=== PATIENT | female | born 1965 | race Caucasian/White ===

== ENCOUNTER → 2016-11-23 | Outpatient (CLI) | payer BC ==
--- NOTE | 2016-11-23 10:48 | MM ---
Reason for exam: follow-up at short interval from prior study. Last mammogram was performed 10 months ago. History: Patient is postmenopausal. Benign left mammotome panel of the left breast, December 10, 2013. Took hormonal contraceptives for 20 years. Physical Findings: Nurse did not find any significant physical abnormalities on exam. MG Diagnostic Mammo RT w CAD CC and MLO view(s) were taken of the right breast. Prior study comparison: January 28, 2016, right breast MG work up mamm w CAD RT. January 08, 2016, bilateral MG screening mammo w CAD. The breast tissue is heterogeneously dense. This may lower the sensitivity of mammography. Asymmetric breast tissue in the right breast central position is stable. There is no discrete abnormality. These results were verbally communicated with the patient and result sheet given to the patient on 11/23/16. ASSESSMENT: Negative, BI-RAD 1 RECOMMENDATION: Return to routine screening mammogram schedule for both breasts. Back on schedule.
== END | disposition home or self-care (01) ==
LOC: RADMAMWWP 09:23
PROVIDERS: ATTEND Internal Medicine Geriatric Medicine
DX: R92.8 Other abnormal and inconclusive findings on diagnostic imaging of breast (principal)

== ENCOUNTER → 2018-04-13 | Outpatient (CLI) | payer BC ==
--- NOTE | 2018-04-17 10:11 | MM ---
Reason for exam: screening (asymptomatic). Last mammogram was performed 1 year and 5 months ago. History: Patient is postmenopausal. Benign left mammotome panel of the left breast, December 10, 2013. Took hormonal contraceptives for 20 years. Physical Findings: A clinical breast exam by your physician is recommended on an annual basis and results should be correlated with mammographic findings. MG 3D Screening Mammo W/Cad Bilateral CC and MLO view(s) were taken. Prior study comparison: November 23, 2016, right breast MG diagnostic mammo RT w CAD. January 28, 2016, right breast MG work up mamm w CAD RT. There are scattered fibroglandular densities. Previous mammotome biopsy in the left breast x 2. New 1.7cm circumscribed mass possible cyst central 2-3 o'clock position. Nodular asymmetry probably 3-4 o'clock appears larger but may represent vasculature. On 3D images, there is a 9mm nodular asymmetry posteriorly and laterally left breast, likely upper outer quadrant. ASSESSMENT: Incomplete: need additional imaging evaluation, BI-RAD 0 RECOMMENDATION: Special view mammogram and ultrasound of the left breast. [facility] will attempt to contact patient to return for supplemental views and ultrasound.
== END | disposition home or self-care (01) ==
LOC: RADMAMWWP 08:55
PROVIDERS: ATTEND Internal Medicine Geriatric Medicine
DX: Z12.31 Encounter for screening mammogram for malignant neoplasm of breast (principal)
CPT/HCPCS: 77063; 77067

== ENCOUNTER → 2018-04-28 | Outpatient (CLI) | payer BC ==
--- NOTE | 2018-05-01 09:03 | MM ---
Reason for exam: additional evaluation requested from abnormal screening. Last mammogram was performed less than 1 month ago. History: Patient is postmenopausal. Benign left mammotome panel of the left breast, December 10, 2013. Took hormonal contraceptives for 20 years. Physical Findings: Nurse Summary: 0.5cm nodule in the left breast at 1 o'clock (nurse dw). MG 3D Work Up W/Cad LT CC and MLO view(s) were taken of the left breast. Prior study comparison: April 13, 2018, bilateral MG 3d screening mammo w/cad. November 23, 2016, right breast MG diagnostic mammo RT w CAD. The breast tissue is heterogeneously dense. This may lower the sensitivity of mammography. There is a 1.7cm upper outer quadrant mass at middle posterior depth. 1.7cm from this there is a 5mm mass at posterior depth, additional masses appear as vascular ectasia on additional views. Left biopsy markers noted. These results were verbally communicated with the patient and result sheet given to the patient on 04/28/18. ASSESSMENT: Incomplete: need additional imaging evaluation, BI-RAD 0 RECOMMENDATION: Ultrasound of the left breast. (upper outer quadrant)
--- NOTE | 2018-05-01 09:05 | USB ---
Reason for exam: additional evaluation requested from abnormal screening. History: Patient is postmenopausal. Benign left mammotome panel of the left breast, December 10, 2013. Took hormonal contraceptives for 20 years. US Breast Workup Limited LT Left limited breast ultrasound including focal area of concern, retroareolar and axilla demonstrates a 1.5 x 0.9 x 1.6cm oval, cystic lesion at 1 o'clock and a 0.5 x 0.4 x 0.4cm oval, cystic lesion at 1 o'clock. These results were verbally communicated with the patient and result sheet given to the patient on 04/28/18. ASSESSMENT: Benign, BI-RAD 2 RECOMMENDATION: Return to routine screening mammogram schedule for both breasts.
== END | disposition home or self-care (01) ==
LOC: RADMAMWWP 14:27
PROVIDERS: ATTEND Internal Medicine Geriatric Medicine
DX: R92.8 Other abnormal and inconclusive findings on diagnostic imaging of breast (principal)
CPT/HCPCS: 77061; 77065

== ENCOUNTER → 2019-06-20 | Outpatient (CLI) | payer BC ==
--- NOTE | 2019-06-20 10:16 | BD ---
EXAMINATION TYPE: Axial Bone Density DATE OF EXAM: 06/20/2019 COMPARISON: NONE CLINICAL HISTORY: M 81.0 Height: 5 FT 3 1/4IN Weight: 125 FRAX RISK QUESTIONS: Secondary Osteoporosis: 3. Menopause before 45: YES RISK FACTORS HISTORY OF: Active: YES Postmenopausal woman: AGE 45 MEDICATIONS: Additional Medications: NONE Additional History: EXAM MEASUREMENTS: Bone mineral densitometry was performed using the [employer] System. Bone mineral density as measured about the Lumbar spine is: ----- L1-L4(G/cm2): 1.218 T Score Values are as follows: ----- L2: -0.4 ----- L3: 0.7 ----- L4: 0.4 ----- L1-L4: 0.3 BASELINE Bone mineral density about the R hip (g/cm2): 0.989 Bone mineral density about the L hip (g/cm2): 1.021 T Score values are as follows: -----R Neck: -0.4 -----L Neck: -0.1 -----R Total: 0.5 -----L Total: 0.8 BASELINE IMPRESSION: Normal (Values between +1 and -1 indicate normal bone mass). Consider repeating this study in 5 year s or sooner if there is some new clinical indication. NOTE: T-SCORE=SD OF THE YOUNG ADULT MEAN.
--- NOTE | 2019-06-21 14:18 | MM ---
Reason for exam: screening (asymptomatic). Last mammogram was performed 1 year and 2 months ago. History: Patient is postmenopausal. Benign left mammotome panel of the left breast, December 10, 2013. Took hormonal contraceptives for 20 years. Physical Findings: A clinical breast exam by your physician is recommended on an annual basis and results should be correlated with mammographic findings. MG 3D Screening Mammo W/Cad Bilateral CC and MLO view(s) were taken. Prior study comparison: April 28, 2018, left breast MG 3d work up w/cad LT. April 13, 2018, bilateral MG 3d screening mammo w/cad. The breast tissue is heterogeneously dense. This may lower the sensitivity of mammography. No suspicious abnormality. Right stable medial asymmetry. Left biopsy surgical clips noted with decrease in size of upper outer quadrant mass. No significant changes when compared with prior studies. ASSESSMENT: Benign, BI-RAD 2 RECOMMENDATION: Routine screening mammogram of both breasts in 1 year.
== END | disposition home or self-care (01) ==
LOC: RADMAMWWP 08:03
PROVIDERS: ATTEND Internal Medicine Geriatric Medicine
DX: Z12.31 Encounter for screening mammogram for malignant neoplasm of breast (principal); M81.0 Age-related osteoporosis without current pathological fracture
CPT/HCPCS: 77063; 77067; 77080

== ENCOUNTER → 2021-05-19 | Outpatient (CLI) | payer BC ==
--- NOTE | 2021-05-25 11:02 | MM ---
Reason for exam: screening (asymptomatic). Last mammogram was performed 1 year and 11 months ago. History: Patient is postmenopausal. Benign left mammotome panel of the left breast, December 10, 2013. Took hormonal contraceptives for 20 years. Physical Findings: A clinical breast exam by your physician is recommended on an annual basis and results should be correlated with mammographic findings. MG 3D Screening Mammo W/Cad Bilateral CC and MLO view(s) were taken. Prior study comparison: June 20, 2019, bilateral MG 3d screening mammo w/cad. April 28, 2018, left breast MG 3d work up w/cad LT. The breast tissue is heterogeneously dense. This may lower the sensitivity of mammography. Previous mammotome biopsy in the left breast x 2. 1.2 x 0.7cm circumscribed mass behind the right nipple, suspect a cyst, ultrasound recommended. 1 o'clock central left breast mass is larger and now lobulated at the site of previous cyst.. Repeat ultrasound recommended. A second area of nodularity posterior left breast just adjacent is more defined. ASSESSMENT: Incomplete: need additional imaging evaluation, BI-RAD 0 RECOMMENDATION: Special view mammogram of the left breast. (3D) Ultrasound of both breasts. (right periareolar, left 12-4 o'clock) [facility] will attempt to contact patient to return for supplemental views and ultrasound.
== END | disposition home or self-care (01) ==
LOC: RADMAMWWP 07:49
PROVIDERS: ATTEND Internal Medicine Geriatric Medicine
DX: Z12.31 Encounter for screening mammogram for malignant neoplasm of breast (principal)
CPT/HCPCS: 77063; 77067

== ENCOUNTER → 2021-06-10 | Outpatient (CLI) | payer BC ==
--- NOTE | 2021-06-10 10:02 | MM ---
Reason for exam: additional evaluation requested from abnormal screening. Last mammogram was performed 1 month ago. History: Patient is postmenopausal. Benign left mammotome panel of the left breast, December 10, 2013. Took hormonal contraceptives for 20 years. Physical Findings: Nurse did not find any significant physical abnormalities on exam. MG 3D Work Up W/Cad LT CCRM, CCRL, and LM view(s) were taken of the left breast. Prior study comparison: May 19, 2021, bilateral MG 3d screening mammo w/cad. June 20, 2019, bilateral MG 3d screening mammo w/cad. Persistent nodules left breast. Bilateral ultrasound recommended. These results were verbally communicated with the patient and result sheet given to the patient on 06/10/21. ASSESSMENT: Incomplete: need additional imaging evaluation, BI-RAD 0 RECOMMENDATION: Ultrasound of both breasts.
--- NOTE | 2021-06-10 10:05 | USB ---
Reason for exam: additional evaluation requested from abnormal screening. History: Patient is postmenopausal. Benign left mammotome panel of the left breast, December 10, 2013. Took hormonal contraceptives for 20 years. US Breast Workup Limited JEFFERY Right limited breast ultrasound including focal area of concern, retroareolar and axilla demonstrates a 1.1 x 0.6 x 1.1cm lobular, mixed lesion at subareaolar, 6 month follow up recommended. Left limited breast ultrasound including focal area of concern, retroareolar and axilla demonstrates a 0.8 x 0.6 x 0.7cm oval, cystic lesion at 2 o'clock. These results were verbally communicated with the patient and result sheet given to the patient on 06/10/21. ASSESSMENT: Probably benign, BI-RAD 3 Benign, BI-RAD 2 finding in the left breast. Probably benign, BI-RAD 3 finding in the right breast. RECOMMENDATION: Ultrasound of the right breast in 6 months.
== END | disposition home or self-care (01) ==
LOC: RADMAMWWP 07:06
PROVIDERS: ATTEND Internal Medicine Geriatric Medicine
DX: R92.8 Other abnormal and inconclusive findings on diagnostic imaging of breast (principal)
CPT/HCPCS: 77061; 77065

== ENCOUNTER → 2022-04-02 | Outpatient (CLI) | payer BC ==
--- NOTE | 2022-04-02 07:56 | USB ---
Reason for Exam: Follow-up at short interval from prior study. Patient History: Menarche at age 15. First Full-Term at age 29. Postmenopausal. Patient used Hormonal Contraceptives for 20 years. 12/10/2013, Benign Core Biopsy on the left side. Risk Values: Destiny 5 year model risk: 1.5%. NCI Lifetime model risk: 9.5%. Technique: Method: Targeted. Prior Study Comparison: 06/20/2019 Bilateral Screening Mammogram, [facility]. 05/19/2021 Bilateral Screening Mammogram, [facility]. 06/10/2021 Left Diagnostic Mammogram, [facility]. Findings: Finding 1: Complicated cysts. Laterality: Right. Size 12 x 6 x 13 mm. Depth: Anterior. Region: Retroareolar. . Overall Assessment: Probably benign, BI-RAD 3 Management: Diagnostic Breast Ultrasound of the right breast in 6 months. A clinical breast exam by your physician is recommended on an annual basis and results should be correlated with mammographic findings. Electronically signed and approved by: Bobo Resendiz M.D. Radiologis
== END | disposition home or self-care (01) ==
LOC: RADUSWWP 07:28
PROVIDERS: ATTEND Internal Medicine Geriatric Medicine
DX: N60.01 Solitary cyst of right breast (principal); Z78.0 Asymptomatic menopausal state

== ENCOUNTER → 2022-07-09 | Outpatient (CLI) | payer BC ==
--- NOTE | 2022-07-09 07:28 | MM ---
Reason for Exam: Additional evaluation requested from prior study. Last mammogram was performed 1 year(s) and 1 month(s) ago. Patient History: Menarche at age 15. First Full-Term at age 29. Postmenopausal. Patient used Hormonal Contraceptives for 20 years. 12/10/2013, Benign Core Biopsy on the left side. Risk Values: Destiny 5 year model risk: 1.5%. NCI Lifetime model risk: 9.5%. Prior Study Comparison: 06/20/2019 Bilateral Screening Mammogram, [facility]. 05/19/2021 Bilateral Screening Mammogram, [facility]. 06/10/2021 Left Diagnostic Mammogram, [facility]. Tissue Density: The breast tissue is heterogeneously dense. This may lower the sensitivity of mammography. Findings: Analyzed By CAD. Previous mammotome biopsy in the left breast x2. Stable 1.2 x 0.7 cm circumscribed mass behind the right nipple corresponding to complicated cyst on ultrasound. Stable 1:00 central left breast mass with lobulated appearance at the site of previous cyst. No new suspicious masses or worrisome cluster microcalcifications. No significant change in prior examination. Overall Assessment: Incomplete: need additional imaging evaluation, BI-RAD 0 Management: Diagnostic Breast Ultrasound of the right breast. A clinical breast exam by your physician is recommended on an annual basis and results should be correlated with mammographic findings. This exam should not preclude additional follow-up of suspicious palpable abnormalities. Results were given to the patient verbally at the time of exam. Electronically signed and approved by: Gregory Vogel D.O.
--- NOTE | 2022-07-09 07:53 | USB ---
Reason for Exam: Follow-up at short interval from prior study. Patient History: Menarche at age 15. First Full-Term at age 29. Postmenopausal. Patient used Hormonal Contraceptives for 20 years. 12/10/2013, Benign Core Biopsy on the left side. Risk Values: Destiny 5 year model risk: 1.5%. NCI Lifetime model risk: 9.5%. Technique: Method: Targeted. Prior Study Comparison: 06/20/2019 Bilateral Screening Mammogram, [facility]. 05/19/2021 Bilateral Screening Mammogram, [facility]. 06/10/2021 Left Diagnostic Mammogram, [facility]. Findings: The upper inner quadrant of the right breast, the axilla of the right breast and the retroareolar of the right breast were scanned. Limited ultrasound of the right breast in radial approach evaluating from 12:00 to 3:00 with additional evaluation of the retroareolar and axillary regions. Slightly decreased size of lobular, mixed lesion at the retroareolar region measuring 1.0 x 0.6 x 1.0 cm without internal vascular flow. Previously measured 1.1 x 0.6 x 1.1 cm. Overall Assessment: Benign, BI-RAD 2 Management: Screening Mammogram of both breasts in 1 year. A clinical breast exam by your physician is recommended on an annual basis and results should be correlated with mammographic findings. Electronically signed and approved by: Gregory Vogel D.O.
== END | disposition home or self-care (01) ==
LOC: RADMAMWWP 06:58
PROVIDERS: ATTEND Internal Medicine Geriatric Medicine
DX: R92.8 Other abnormal and inconclusive findings on diagnostic imaging of breast (principal); Z78.0 Asymptomatic menopausal state
CPT/HCPCS: 77066

== ENCOUNTER → 2024-03-14 | Outpatient (CLI) | payer BC ==
--- NOTE | 2024-03-14 07:29 | MM ---
Reason for Exam: Follow-up at short interval from prior study. Last screening mammogram was performed 8 month(s) ago. Patient History: Menarche at age 15. First Full-Term at age 29. Postmenopausal. Patient has history of breast feeding. Patient used Hormonal Contraceptives for 20 years. 12/10/2013, Benign Core Biopsy on the left side. Risk Values: Destiny 5 year model risk: 1.6%. NCI Lifetime model risk: 9.1%. Prior Study Comparison: 04/13/2018 Bilateral Screening Mammogram, [facility]. 04/28/2018 Left Diagnostic Mammogram, [facility]. 06/20/2019 Bilateral Screening Mammogram, [facility]. 05/19/2021 Bilateral Screening Mammogram, [facility]. 06/10/2021 Left Diagnostic Mammogram, [facility]. 07/09/2022 Bilateral MG diagnostic mammo w CAD [facility], [facility]. 07/11/2023 Bilateral MG 3D screening mammo w/cad, [facility]. 07/19/2023 Right MG 3D work up w/cad RT, [facility]. Tissue Density: Right: There are scattered areas of fibroglandular density. Findings: Analyzed By CAD. The pattern is symmetrical. There is a stable density in the subareolar right breast. Benign calcifications right breast No suspicious groups of microcalcifications, spiculated or lobular masses, architectural distortion or other secondary signs of malignancy are mammographically apparent. Overall Assessment: Benign, BI-RAD 2 Management: Screening Mammogram of both breasts in 6 months. A negative mammogram report should not preclude additional follow up of suspicious palpable abnormalities. Patient should continue monthly self breast exam. A clinical breast exam by your physician is recommended on an annual basis and results should be correlated with mammographic findings. Note on Destiny scores and lifetime risk: 1. A Destiny score greater than 3% is considered moderate risk. If this is the case, consider specialist referral to assess eligibility for a risk reducing agent. 2. If overall lifetime risk for the development of breast cancer is 20% or higher, the patient may qualify for future screening with alternating mammogram and breast MRI. Electronically signed and approved by: Vj Mccullough D.O. Radiologis
== END | disposition home or self-care (01) ==
LOC: RADMAMWWP 06:52
PROVIDERS: ATTEND Internal Medicine Geriatric Medicine
DX: R92.321 Mammographic fibroglandular density, right breast (principal); R92.1 Mammographic calcification found on diagnostic imaging of breast; Z78.0 Asymptomatic menopausal state
CPT/HCPCS: 77061; 77065

== ENCOUNTER → 2024-07-17 | Outpatient (CLI) | payer BC ==
--- NOTE | 2024-07-17 11:55 | BD ---
EXAMINATION TYPE: Axial Bone Density DATE OF EXAM: 07/17/2024 CLINICAL HISTORY: 58 years old Female. ICD-10 CODE: M89.9 DISORDER OF BONE Height: 63 Weight: 114.3 FRAX RISK QUESTIONS: Alcohol (3 or more units per day): no Family History (Parent hip fracture): no Glucocorticoids (More than 3mos): no (Ex: prednisone, prednisolone, methylprednisolone, dexamethasone, and hydrocortisone). History of Fracture in Adulthood: no Secondary Osteoporosis: 1. Type 1 Diabetes: no 2. Hyperthyroidism: no 3. Menopause before 45: no 4. Malnutrition: no 5. Chronic liver disease: no Rheumatoid Arthritis: no Current Tobacco Use: no RISK FACTORS HISTORY OF: Hip Fracture (Right/Left): no Spine Fracture: no History of Wrist Fracture: no Surgery to Spine/Hip(right/left)/Wrist (right/left): no MEDICATIONS: Thyroid Medications: no Osteoporosis Medications: no EXAM MEASUREMENTS: Bone mineral densitometry was performed using the [employer] System. Bone mineral density as measured about the Lumbar spine is: ----- L1-L4(G/cm2): 1.144 T Score Values are as follows: ----- L1: -0.8 ----- L2: -0.8 ----- L3: -0.1 ----- L4: 0.1 ----- L1-L4: -0.3 Z Score Values are as follows: ----- L1: 0.7 ----- L2: 0.8 ----- L3: 1.4 ----- L4: 1.6 ----- L1-L4: 1.2 Bone mineral density has: decreased -6.1 % since study of: 06/20/2019 Bone mineral density about the R hip (g/cm2): 1.000 Bone mineral density about the L hip (g/cm2): 1.070 T Score values are as follows: -----R Neck: -0.9 -----L Neck: -0.5 -----R Total: -0.1 -----L Total: 0.5 Z Score values are as follows: -----R Neck: 0.5 -----L Neck: 0.9 -----R Total: 1.1 -----L Total: 1.7 Bone mineral density has: decreased -5.1 % since study of: 06/20/2019 FRAX%s: The graph provided illustrates a 5.9% chance for a major osteoporotic fx and a 0.3% chance fo r the hips probability for fx in 10 years time. IMPRESSION: Normal (Values between +1 and -1 indicate normal bone mass). Consider repeating this study in 5 year s or sooner if there is some new clinical indication. NOTE: T-SCORE=SD OF THE YOUNG ADULT MEAN. [facility], , 07/17/2024 11:53 AM
--- NOTE | 2024-07-18 12:23 | MM ---
Reason for Exam: Screening (asymptomatic). Last mammogram was performed 1 year(s) and 1 month(s) ago. Patient History: Menarche at age 15. First Full-Term at age 29. Postmenopausal. Patient has history of breast feeding. Patient used Hormonal Contraceptives for 20 years. 12/10/2013, Benign Core Biopsy on the left side. Risk Values: Destiny 5 year model risk: 1.6%. NCI Lifetime model risk: 9.1%. Prior Study Comparison: 07/11/2023 Bilateral MG 3D screening mammo w/cad, [facility]. 07/19/2023 Right MG 3D work up w/cad RT, [facility]. 03/14/2024 Right MG 3D diag mammo w/cad RT, [facility]. Tissue Density: The breasts are heterogeneously dense, which may obscure small masses. Findings: Analyzed By CAD. Increasing nodular density slightly upper outer left breast 4 cm from the nipple measuring 8 mm. Additional views are recommended. Previously sampled nodule upper outer left breast. Stable right-sided nodule dating back to 2020. Microclip marker as are noted. No suspicious consultations present. Overall Assessment: Incomplete: need additional imaging evaluation, BI-RAD 0 Management: Diagnostic Mammogram of the left breast. . Patient should continue monthly self-breast exams. A clinical breast exam by your physician is recommended on an annual basis. This exam should not preclude additional follow-up of suspicious palpable abnormalities. Note on Destiny scores and lifetime risk: 1. A Destiny score greater than 3% is considered moderate risk. If this is the case, consider specialist referral to assess eligibility for a risk reducing agent. 2. If overall lifetime risk for the development of breast cancer is 20% or higher, the patient may qualify for future screening with alternating mammogram and breast MRI. [facility], , 07/18/2024 12:20 PM. Electronically signed and approved by: Bobo Resendiz M.D. Radiologis
== END | disposition home or self-care (01) ==
LOC: RADMAMWWP 09:12
PROVIDERS: ATTEND Internal Medicine Geriatric Medicine
CPT/HCPCS: 77063; 77067; 77080